=== PATIENT | male | born 1965 | race Caucasian/White ===

== ENCOUNTER 2023-11-25 09:38 | Outpatient (AMB) | payer OTHER, SELFPAY ==
--- NOTE | 2023-11-25 09:44 | MHC.PC.OV ---
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 Required: No Allergies No Known Allergies Allergy (Verified 11/25/23 09:45) Medication List - Last Reconciled 11/25/23 by Shanna Guevara MD acetaminophen (Tylenol) 325 mg PO QID PRN ibuprofen 200 mg PO Q6H PRN Tobacco use date assessed: 11/25/23 Dental Screening Dental Screen Date: 11/25/23 Did you have a dental visit in the last 12 months?: Yes Did you have a dental problem in the last 6 months where you did not have access to dental care?: No Was dental information given to patient?: Patient has dentist HPI HPI Comments History of Present Illness Details This is a 58 year old male with a past medical history of aortic root dilation presenting to reestablish care and for physical exam Aortic root dilation with annual echos. Not significant increase in size per patient though records not yet available. Had colonoscopy at 49 or 50 and was told 10 year return. 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 1. Little interest or pleasure in doing things: not at all 2. Feeling down, depressed, or hopeless: several days 3. Trouble falling or staying asleep, or sleeping too much: several days 4. Feeling tired or having little energy: several days 5. Poor appetite or overeating: not at all 6. Feeling bad about yourself - or that you are a failure or have let yourself or your family down: not at all 7. Trouble concentrating on things, such as reading the newspaper or watching television: not at all 8. Moving or speaking so slowly that other people could have noticed. Or the opposite - being so fidgety or restless that you have been moving around a lot more than usual: not at all 9. Thoughts that you would be better off or of hurting yourself in some way: not at all Total score: 3 Depression Screening Interpretation: Negative (neg) Depression Screening Done: Yes Source: Developed by Drs. Andrés Junior, Citlali Ortiz, Luis Fernando Kenny and colleagues, with an educational jean paul from [employer]. AUDIT C Alcohol Use Questionnaire (AUDIT-C) 1. How often do you have a drink containing alcohol?: Never 3. How often do you have six or more drinks on one occasion?: Never Total Score: 0 Review of Systems Const Details: ROS CONSTITUTIONAL: Denies weight loss, fever and chills. HEENT: Denies changes in vision and hearing. RESPIRATORY: Denies SOB and cough. CV: Denies palpitations and CP GI: Denies abdominal pain, nausea, vomiting and diarrhea. : Denies dysuria and urinary frequency. MSK: Denies new myalgia and joint pain. SKIN: Denies rash and pruritus. NEUROLOGICAL: Denies headache PSYCHIATRIC: Denies recent changes in mood. Physical exam (Primary Care) Vital Signs: Last Vital Signs Temp 98 F 11/25/23 09:49 Pulse 62 11/25/23 09:49 Resp 18 11/25/23 09:49 BP 144/88 H 11/25/23 09:51 Pulse Ox 96 11/25/23 09:49 Oxygen Delivery Method Room Air 11/25/23 09:49 PHYSICAL EXAM: GENERAL: Alert and oriented x 3. NAD EYES: EOMI. Anicteric. HENT: Moist mucous membranes. No scleral icterus. No cervical lymphadenopathy. LUNGS: Clear to auscultation bilaterally. CARDIOVASCULAR: Regular rate and rhythm. No murmur. No JVD. ABDOMEN: Soft, non-tender +bs EXTREMITIES: No edema. Non-tender. SKIN: No rashes or lesions. Warm. NEUROLOGIC: No focal neurological deficits. CN II-XII grossly intact PSYCHIATRIC: Cooperative. Appropriate mood and affect BMI result Body Mass Index 31.9 Tobacco/Smoking Status: Tobacco use Status Tobacco use date assessed 11/25/23 11/25/23 09:53 Patient Tobacco Use Status Former Tobacco user 11/25/23 09:53 e-Cigarette/Vaping Use Never Used 11/25/23 09:53 Depression Screening Interpretation: Negative (neg) Assessment and Plan Assessment & Plan (1) Physical exam: Code(s): Z00.00 - Encounter for general adult medical examination without abnormal findings Plan: 58 year old male presenting for physical exam The patient was evaluated today for annual preventive exam He was counseled about healthy lifestyle habits, including: Smoking cessation Limiting alcohol intake Receiving age-appropriate immunizations at recommended intervals Recommended screening in men includes: Human immunodeficiency virus infection in all men Hypertension in all men Diabetes mellitus in men 40 to 70 years of age who are overweight or obese Dyslipidemia in men 40 to 75 years Prostate cancer in some men 55 to 69 years of age, based on shared decision making Colorectal cancer in average-risk men 50 to 75 years of age Lung cancer in men 55 to 80 years of age who have at least a 45-[id number]-lhyr smoking history and currently smoke or have quit within the past 15 years (2) Aortic root dilatation: Comment: echo ordered Code(s): I77.810 - Thoracic aortic ectasia Orders: Orders Complete Blood Count Auto Diff Today Z12.5 - Encounter for screening for malignant neoplasm of prostate, Z13.0 - Encounter for screening for diseases of the blood and blood-forming organs and certain disorders involving the immune mechanism, Z13.220 - Encounter for screening for lipoid disorders, Z13.228 - Encounter for screening for other metabolic disorders Comprehensive Met. Panel Today Z12.5 - Encounter for screening for malignant neoplasm of prostate, Z13.0 - Encounter for screening for diseases of the blood and blood-forming organs and certain disorders involving the immune mechanism, Z13.220 - Encounter for screening for lipoid disorders, Z13.228 - Encounter for screening for other metabolic disorders Prostate Specific Antigen Today Z12.5 - Encounter for screening for malignant neoplasm of prostate, Z13.0 - Encounter for screening for diseases of the blood and blood-forming organs and certain disorders involving the immune mechanism, Z13.220 - Encounter for screening for lipoid disorders, Z13.228 - Encounter for screening for other metabolic disorders Lipid Panel Today Z12.5 - Encounter for screening for malignant neoplasm of prostate, Z13.0 - Encounter for screening for diseases of the blood and blood-forming organs and certain disorders involving the immune mechanism, Z13.220 - Encounter for screening for lipoid disorders, Z13.228 - Encounter for screening for other metabolic disorders CA echo transthoracic complete Today I77.810 - Thoracic aortic ectasia Coding Level of Care Code Est Pt Prev Care 40-64y(24341) Diagnoses Physical exam Z00.00 Aortic root dilatation I77.810
[2023-11-25 09:49] VITALS: BP 142/80; PULSE 62; RESP 18; TEMP 36.6; O2SAT 96; BMI 31.9
[2023-11-25 09:51] VITALS: BP 144/88
== END 2023-11-25 10:28 | disposition home or self-care (01) ==
PROVIDERS: PCP Internal Medicine; Visit Provider Internal Medicine
DX: Z00.00 Encounter for general adult medical examination without abnormal findings (principal); I77.810 Thoracic aortic ectasia
CPT/HCPCS: 99396

== ENCOUNTER → 2024-04-05 15:02 | Outpatient (REF) | payer OTHER, SELFPAY ==
--- NOTE | 2024-04-05 15:04 | CA_ITS ---
Transthoracic Echocardiogram Patient (Last, First, Middle): Xavi Kelly, Gender: Male Date of : 1965 Age: 58 Procedure Date: 04/05/2024 Procedure Type: Transthoracic Echocardiogram Location: OP Height: 177.8 cm Weight: 102.06 kg BSA: 2.19 m2 Heart Rate: bpm BP: 138 / 90 mmHg Jet Wiper: TO Referring MD: Shanna Guevara MD Rackman: Sherif Mckoy MD Symptoms: I77.810 - Thoracic aortic ectasia Study Quality: Fair ECG Rhythm: Sinus Conclusions: - 1. Normal LV ejection fraction of 60 65% 2. Normal cardiac valvular Dopplers 3. Upper limits of normal ascending aortic size 4. No gross pericardial effusion Findings Left Ventricle Normal left ventricular size, thickness, and systolic function. The visually estimated ejection fraction is between 60-65%. Spectral Doppler is indicative of a normal filling pattern. Right Ventricle Normal right ventricular cavity size and systolic function. Atria Both atria are normal in size. Interatrial shunt cannot be excluded. Aortic Valve The aortic valve structure and function is likely normal. There is no aortic valve stenosis. There is no aortic valve regurgitation. Mitral Valve Likely normal mitral valve structure and function. There is trace mitral valve regurgitation. There is no mitral valve stenosis. Pulmonic Valve The pulmonic valve was not well visualized. Tricuspid Valve Likely normal tricuspid valve structure and function. Tricuspid regurgitation envelope is inadequate for calculation of right ventricular systolic pressure. Normal right atrial pressure. Great Vessels All visible segments of the aorta are normal in size. The pulmonary artery was not well visualized. Venous The inferior vena cava is normal in size and collapses greater than 50% with inspiration. Pericardium/Pleural There is no evidence of pericardial effusion. Prior Study Comparison No prior study available for comparison. Measurements 2D Linear Measurements IVSd: 1.05 0.6-0.9/0.6-1.0 cm LVIDd: 4.34 3.9-5.3/4.2-5.9 cm LVIDd Index: 1.98 2.4-3.2/2.2-3.1 cm/m2 LVIDs: 2.86 2.0-3.6 cm LVPWd: 0.84 0.7-1.1 cm LA Diam: 3.30 2.7-3.8/3.0-4.0 cm LAIDs Index: 1.51 1.5-2.3 cm/m2 LV Mass: 166.70 67-162/88-224 g LV Mass Index: 76.12 43-95/49-115 g/m2 LVOT Diam: 2.30 3.0+(-)1.3 cm 2D Systolic Function EF 4C: 64.50 >55% EF 2C: 64.40 >55% EF BiP: 62.60 >55% Mitral Valve MV Pk E: 0.66 MV PK A: 0.62 MV Decel Time: 231.00 E/A: 1.10 E'Lateral: 9.79 E'Medial: 6.96 E/E' Med: 9.50 E/E' Lat: 6.80 PHT: 68.00 MVA PHT: 3.24 Decel [place]: 2.87 Aortic Valve AoV Pk Ruddy: 1.22 AoV Mn Ruddy: 0.87 AoV VTI: 0.26 AoV Pk Grad: 6.00 Aov Mn Grad: 3.00 CLEMENTE Cont.VTI: 2.74 LVOT LVOT Pk Ruddy: 0.72 LVOT Mn Ruddy: 0.51 LVOT VTI: 0.17 LVOT Pk Grad: 2.00 LVOT Mn Grad: 1.00 LVOT Diam: 2.30 LVOT Area: 4.15 Diastolic Function MV Pk E: 0.66 MV Pk A: 0.62 E/A: 1.10 E'Medial: 6.96 E/E' Med: 9.50 E' Laterial: 9.79 E/E' Lat: 6.80 Right Ventricle TAPSE (mm): 29.50 TVS' Ruddy: 15.80 Tricuspid Valve RA Press: 3.00 Great Vessels Aorta Sinus of Valsalva: 4.12 2.0-3.5 cm Ao Asc: 3.60 2.1-3.4 cm Ao Arch: 3.20 Updated in Other Vendor System with Status of Final Sherif Mckoy MD electronically signed on 04/05/2024 4:16:13 PM with status of Final
== END ==
LOC: HO.CARD 15:02
PROVIDERS: PCP Internal Medicine; Visit Provider Internal Medicine
DX: I77.810 Thoracic aortic ectasia (principal)
CPT/HCPCS: 93306

== ENCOUNTER → 2024-04-05 15:04 | Outpatient (BNV) | payer OTHER, SELFPAY | PROVIDERS: PCP Internal Medicine; Visit Provider Internal Medicine Cardiovascular Disease | DX: I34.0 Nonrheumatic mitral (valve) insufficiency (principal); I77.810 Thoracic aortic ectasia | CPT/HCPCS: 93306 ==

== ENCOUNTER 2024-04-24 08:51 | Outpatient (AMB) | payer OTHER, SELFPAY ==
--- NOTE | 2024-04-24 08:59 | A.OFFPC_ITS ---
Vital Signs 04/24/24 09:00 Height 5 ft 10 in Weight 234 lb BMI 33.6 BP 102/80 Blood Pressure Location Rt brachial Position Sitting Respiration 14 Pulse 77 Pulse Source Pulse Oximeter Temp 98.5 F Temp Source Oral Pulse Oximetry (%) 97 Oxygen Delivery Method Room Air Intake Visit Reasons: ear pain Intake Note: Left ear pain. Pain started in the jaw about two weeks ago. 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 Was quite bad at the start then seemed to migrate into the left ear and the severity has subsided over the past week. Aortic root dilation with annual echos. Not significant increase in size per patient though records not yet available. Had colonoscopy at 49 or 50 and was told 10 year return. Record not yet available ROS CONSTITUTIONAL: Denies weight loss, fever and chills. HEENT: Denies changes in vision and hearing. RESPIRATORY: Denies SOB and cough. CV: Denies palpitations and CP GI: Denies abdominal pain, nausea, vomiting and diarrhea. : Denies dysuria and urinary frequency. MSK: Denies new myalgia and joint pain. SKIN: Denies rash and pruritus. NEUROLOGICAL: Denies headache PSYCHIATRIC: Denies recent changes in mood. PHYSICAL EXAM: GENERAL: Alert and oriented x 3. NAD EYES: EOMI. Anicteric. HENT: Moist mucous membranes. No scleral icterus. No cervical lymphadenopathy. Bilateral ear canals and TM normal LUNGS: Clear to auscultation bilaterally. CARDIOVASCULAR: Regular rate and rhythm. No murmur. No JVD. ABDOMEN: Soft, non-tender +bs EXTREMITIES: No edema. Non-tender. SKIN: No rashes or lesions. Warm. NEUROLOGIC: No focal neurological deficits. CN II-XII grossly intact PSYCHIATRIC: Cooperative. 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 1. Little interest or pleasure in doing things: not at all 2. Feeling down, depressed, or hopeless: not at all 3. Trouble falling or staying asleep, or sleeping too much: not at all 4. Feeling tired or having little energy: not at all 5. Poor appetite or overeating: not at all 6. Feeling bad about yourself - or that you are a failure or have let yourself or your family down: not at all 7. Trouble concentrating on things, such as reading the newspaper or watching television: not at all 8. Moving or speaking so slowly that other people could have noticed. Or the opposite - being so fidgety or restless that you have been moving around a lot more than usual: not at all 9. Thoughts that you would be better off or of hurting yourself in some way: not at all Total score: 0 Depression Screening Interpretation: Negative Depression Screening Done: Yes 28923 - PHQ-9 Billing: Yes Source: Developed by Drs. Andrsé Junior, Citlali Ortiz, Luis Fernando Kenny and colleagues, with an educational jean paul from [employer]. Thrive Questionnaire Date Thrive assessed: 04/17/24 I am a: Patient What is your living situation today?: I have a steady place to live Within the past 12 months, did the food you bought not last and you didn't have the money to get more?: Never true Within the past 12 months, did you worry whether your food would run out before you got money to buy more?: Never true Do you have trouble paying for medicines?: No Do you have trouble getting transportation to medical appointments?: No Do you have trouble paying your heating and electricity bill?: No Do you have trouble taking care of your child, family member or friend?: No Do you have trouble with day-to-day activities such as bathing, preparing meals, shopping, managing finances, etc.?: No Are you currently unemployed and looking for a job?: No Are you interested in more education?: No Please select the resources that you would like help with: None Currently or been in a relationship where the following occur: No concerns reported THRIVE Score: 0 AUDIT C Alcohol Use Questionnaire (AUDIT-C) 1. How often do you have a drink containing alcohol?: Never Total Score: 0 GREGORIA-7 AMB Questionnaire GREGORIA-7 Feeling nervous, anxious, or on edge: 0 = Not at all Not being able to stop or control worryin = Not at all Worrying too much about different things: 0 = Not at all Trouble relaxin = Not at all Being so restless that it is hard to sit still: 0 = Not at all Becoming easily annoyed or irritable: 0 = Not at all Feeling afraid as if something awful might happen: 0 = Not at all Total GREGORIA-7 score (0-4 normal; 5-9 mild; 10-14 moderate; 15-21 severe): 0 Source: Developed by Drs. Andrés Junior, Citlali Ortiz, Luis Fernando Kenny and colleagues, with an educational jean paul from [employer]. Physical exam (Primary Care) Vital Signs: Last Vital Signs Temp 98.5 F 04/24/24 09:00 Pulse 77 04/24/24 09:00 Resp 14 04/24/24 09:00 BP 102/80 04/24/24 09:00 Pulse Ox 97 04/24/24 09:00 Oxygen Delivery Method Room Air 04/24/24 09:00 BMI result Body Mass Index 33.6 Tobacco/Smoking Status: Tobacco use Status Tobacco use date assessed 11/25/23 04/24/24 09:03 Patient Tobacco Use Status Former Tobacco user 04/24/24 09:03 e-Cigarette/Vaping Use Never Used 04/24/24 09:03 PHQ-9: PHQ-9 Score PHQ-9: Total score 0 04/24/24 09:08 Depression Screening Interpretation: Negative Thrive Assessment: Date of Thrive Assessment Date Thrive assessed 04/17/24 04/24/24 09:03 Currently or been in a relationship where the following occur: No concerns reported Coding Level of Care Code Est Pt Level 4 (79287) Diagnoses 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 No evidence of ear infection Medications: New prednisone 40 mg (2 x 20 mg) PO DAILY 10 tabs 0RF
[2024-04-24 09:00] VITALS: BP 102/80; PULSE 77; RESP 14; TEMP 36.9; O2SAT 97; BMI 33.6
== END 2024-04-24 09:23 | disposition home or self-care (01) ==
PROVIDERS: PCP Internal Medicine; Visit Provider Internal Medicine
DX: M26.642 Arthritis of left temporomandibular joint (principal)

== ENCOUNTER → 2024-04-24 08:51 | Outpatient (BNVA) | payer OTHER, SELFPAY | PROVIDERS: PCP Internal Medicine; Visit Provider Internal Medicine ==

== ENCOUNTER 2024-11-27 08:22 | Outpatient (AMB) | payer OTHER, SELFPAY ==
--- NOTE | 2024-11-27 08:27 | A.OFFPC_ITS ---
Vital Signs 11/27/24 08:35 Height 5 ft 10 in Weight 231 lb BMI 33.1 BP 138/88 Blood Pressure Location Lt brachial Position Sitting Pulse 65 Pulse Source Pulse Oximeter Temp 97.4 F Temp Source Temporal Artery Scan Pulse Oximetry (%) 97 Oxygen Delivery Method Room Air Intake Visit Reasons: annual exam Intake Note: Xavi presents in the office today for his annual physical exam. Allergies Seasonal Allergies Allergy (Verified 11/27/24 08:29) Congestion Tobacco use date assessed: 11/27/24 Dental Screening Dental Screen Date: 11/27/24 Did you have a dental visit in the last 12 months?: No Did you have a dental problem in the last 6 months where you did not have access to dental care?: No Was dental information given to patient?: Yes HPI HPI Comments History of Present Illness Details This is a 59 year old male with a past medical history of aortic root dilation, low back pain presenting for physical exam Aortic root dilation with annual echos-last Reports pain and numbness in the right great toe, pain in the right lower leg with walking front and back. The toe gets cold. Similar symptoms in left but less severe. Has history of low back pain. Has been fairly stable. Had colonoscopy 2013- year repeat ROS see HPI PHYSICAL EXAM: GENERAL: Alert and oriented x 3. NAD EYES: EOMI. Anicteric. HENT: Moist mucous membranes. No scleral icterus. No cervical lymphadenopathy. Bilateral ear canals and TM normal LUNGS: Clear to auscultation bilaterally. CARDIOVASCULAR: Regular rate and rhythm. ABDOMEN: Soft, non-tender +bs EXTREMITIES: Mild bilateral pitting edema, some rle hair loss. 1+R-DP pulse 2+left SKIN: scattered nevi, aks NEUROLOGIC: No focal neurological deficits. CN II-XII grossly intact PSYCHIATRIC: Cooperative. 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 1. Little interest or pleasure in doing things: not at all 2. Feeling down, depressed, or hopeless: not at all 3. Trouble falling or staying asleep, or sleeping too much: several days 4. Feeling tired or having little energy: several days 5. Poor appetite or overeating: not at all 6. Feeling bad about yourself - or that you are a failure or have let yourself or your family down: not at all 7. Trouble concentrating on things, such as reading the newspaper or watching television: not at all 8. Moving or speaking so slowly that other people could have noticed. Or the opposite - being so fidgety or restless that you have been moving around a lot more than usual: not at all 9. Thoughts that you would be better off or of hurting yourself in some way: not at all Total score: 2 Depression Screening Interpretation: Negative Depression Screening Done: Yes 90930 - PHQ-9 Billing: Patient declined-do not bill Source: Developed by Drs. Andrés Junior, Citlali Ortiz, Luis Fernando Kenny and colleagues, with an educational jean paul from [employer]. Thrive Questionnaire Date Thrive assessed: 11/27/24 I am a: Patient What is your living situation today?: I have a steady place to live Within the past 12 months, did the food you bought not last and you didn't have the money to get more?: Never true Within the past 12 months, did you worry whether your food would run out before you got money to buy more?: Never true Do you have trouble paying for medicines?: No Do you have trouble getting transportation to medical appointments?: No Do you have trouble paying your heating and electricity bill?: No Do you have trouble taking care of your child, family member or friend?: No Do you have trouble with day-to-day activities such as bathing, preparing meals, shopping, managing finances, etc.?: No Are you currently unemployed and looking for a job?: No Are you interested in more education?: No Please select the resources that you would like help with: None Currently or been in a relationship where the following occur: No concerns reported THRIVE Score: 0 AUDIT C Alcohol Use Questionnaire (AUDIT-C) 1. How often do you have a drink containing alcohol?: Never 3. How often do you have six or more drinks on one occasion?: Never Total Score: 0 GREGORIA-7 AMB Questionnaire GREGORIA-7 Date GREGORIA - 7 assessed: 11/27/24 Feeling nervous, anxious, or on edge: 0 = Not at all Not being able to stop or control worryin = Not at all Worrying too much about different things: 0 = Not at all Trouble relaxin = Not at all Being so restless that it is hard to sit still: 0 = Not at all Becoming easily annoyed or irritable: 0 = Not at all Feeling afraid as if something awful might happen: 0 = Not at all Total GREGORIA-7 score (0-4 normal; 5-9 mild; 10-14 moderate; 15-21 severe): 0 Source: Developed by Drs. Andrés Junior, Citlali Ortiz, Luis Fernando Kenny and colleagues, with an educational jean paul from [employer]. GREGORIA-7 Assessment Billing GREGORIA-7 Assessment Tool: GREGORIA-7 Assessment 88726 Physical exam (Primary Care) Vital Signs: Last Vital Signs Temp 97.4 F 11/27/24 08:35 Pulse 65 11/27/24 08:35 BP 138/88 11/27/24 08:35 Pulse Ox 97 11/27/24 08:35 Oxygen Delivery Method Room Air 11/27/24 08:35 BMI result Body Mass Index 33.1 Tobacco/Smoking Status: Tobacco use Status Tobacco use date assessed 11/27/24 11/27/24 08:33 Patient Tobacco Use Status Former Tobacco user 11/27/24 08:31 e-Cigarette/Vaping Use Never Used 11/27/24 08:31 PHQ-9: PHQ-9 Score PHQ-9: Total score 2 11/27/24 09:06 Depression Screening Interpretation: Negative Thrive Assessment: Date of Thrive Assessment Date Thrive assessed 11/27/24 11/27/24 08:33 Currently or been in a relationship where the following occur: No concerns reported Coding Level of Care Code Est Pt Prev Care 40-64y(80210) Diagnoses Physical exam Z00.00 Numbness of toes R20.0 Right leg pain M79.604 Aortic root dilatation I77.810 Additional Codes GREGORIA-7 Assessment Billing - GREGORIA-7 Assessment Tool: GREGORIA-7 Assessment 58008 ([id number]) Assessment & Plan Assessment & Plan (1) Physical exam: Code(s): Z00.00 - Encounter for general adult medical examination without abnormal findings Category: Medical (2) Numbness of toes: Code(s): R20.0 - Anesthesia of skin Category: Medical (3) Right leg pain: Code(s): M79.604 - Pain in right leg Category: Medical (4) Aortic root dilatation: Comment: echo ordered Code(s): I77.810 - Thoracic aortic ectasia Category: Medical Plan 59 year old for CPE Interval history reviewed Leg pain-venous us ordered. referral to vascular Referral to dermatology Annual echo ordered Labs ordered Orders: Orders Comprehensive Met. Panel Today Z00.00 - Encounter for general adult medical examination without abnormal findings, Z13.228 - Encounter for screening for other metabolic disorders Lipid Panel Today Z13.220 - Encounter for screening for lipoid disorders CA echo transthoracic complete 5 Months I77.810 - Thoracic aortic ectasia Complete Blood Count Auto Diff Today Z13.0 - Encounter for screening for diseases of the blood and blood-forming organs and certain disorders involving the immune mechanism Hemoglobin A1c Today M79.604 - Pain in right leg, R20.0 - Anesthesia of skin Prostate Specific Antigen Today R20.0 - Anesthesia of skin, Z12.5 - Encounter for screening for malignant neoplasm of prostate Vitamin B12 and Folate Today R20.0 - Anesthesia of skin US venous duplex LE BI Today M79.604 - Pain in right leg, M79.605 - Pain in left leg Referrals Dermatology Referral D22.9 - Melanocytic nevi, unspecified Gastroenterology Referral M79.604 - Pain in right leg, R20.0 - Anesthesia of skin, Z00.00 - Encounter for general adult medical examination without abnormal findings, Z12.11 - Encounter for screening for malignant neoplasm of colon Vascular Surgery Referral M79.604 - Pain in right leg, M79.605 - Pain in left leg
[2024-11-27 08:35] VITALS: BP 138/88; PULSE 65; TEMP 36.3; O2SAT 97; BMI 33.1
== END 2024-11-27 09:08 | disposition home or self-care (01) ==
LOC: HO.HMCFM 08:23
PROVIDERS: PCP Internal Medicine; Visit Provider Internal Medicine
DX: Z00.00 Encounter for general adult medical examination without abnormal findings (principal); R20.0 Anesthesia of skin; M79.604 Pain in right leg; I77.810 Thoracic aortic ectasia

== ENCOUNTER → 2024-11-27 08:22 | Outpatient (BNVA) | payer OTHER, SELFPAY | PROVIDERS: PCP Internal Medicine; Visit Provider Internal Medicine | DX: Z00.00 Encounter for general adult medical examination without abnormal findings (principal); R20.0 Anesthesia of skin; M79.604 Pain in right leg; I77.810 Thoracic aortic ectasia; M79.605 Pain in left leg; D22.9 Melanocytic nevi, unspecified | CPT/HCPCS: 96127 ==

== ENCOUNTER 2024-11-27 09:15 | Outpatient (REF) | payer OTHER, SELFPAY ==
--- OUTSIDE RECORDS SUMMARY | 2024-11-27 10:07 | XMS_ITS | Encounter Summary ---
Author Organization [facility] Address [address] [place] [address] Care Team Providers Care Fast Food Crew Lead Name Role Phone Yevgeniy Phelan MD Primary Care Provider Unavail able Shanna Briggs MD Primary Care Provider Unavailraina flores Encounter Details Date Type Department Care Team Description 10/18/2013 Controlled Substance Contract with Plan Medical Records [address] [place] [id number] Abstract, Provider Social History Tobacco Use Types Packs/Day Years Used Date Smoking Tobacco: Former Cigarettes 08 20 Smokeless Tobacco: Never Alcohol Use Standard Drinks/Week Comments No 0 (1 standard drink = 0.6 oz pur e alcohol) Sex Assigned at Date Recorded Not on file documented as of this encounter Plan of Treatment Not on file documented as of this encounter Visit Diagnoses Not on filedocumented in this encounter Care Teams Fast Food Crew Lead Relationship Specialty Start Date End Date Yevgeniy Phelan MD PCP - General Internal Medicine 08/15/13 05/25/15 Shanna Briggs MD PCP - General Internal Medicine 05/26/15 documented as of this encounter
--- OUTSIDE RECORDS SUMMARY | 2024-11-27 10:07 | XMS_ITS | Clinical Summary ---
Author Organization [facility] Address [address] [place] [address] Care Team Providers Care Outside Rigger Name Role Phone Shanna Briggs MD Primary Care Provider Unavaila ble Allergies No known active allergies Medications No known medications Active Problems Problem Noted Date Obstructive sleep apnea mild AHI 6 07/23 Overview: [facility] Home Sleep Apnea Test: Date 07/14/2020; Wt 230#; BMI 33; ELZA (AHI) 6, AI 1; HI 5; Unclassified apneas 0; Obstructive apneas 3; Central apneas 0; Mixed apneas 0; hypopneas 19; average oxygen saturation 95% (lowest 86% without saturations <88% for 5% or more of study) - Obstructive Sleep Apnea - mild; mostly hypopneas; without sleep related hypoventilation by 2019 home sleep apnea test. Overweight 10/29/2014 Rosacea 02/18/2014 Carotid atherosclerosis Anxiety Snoring Immunizations Name Administration Dates Next Due Tdap 10/18/2013 Family History Relation Name Status Comments Daughter Alive step daughter, healthy Father Alive Chol, DM Maternal Grandfather [place] Maternal Grandmother (Age 80s) O ld age? Mother Alive Chol Paternal Grandfather [place] Paternal Grandmother (Age 80s) C VA Sister 1 Alive times 2, twins - healhty Sister 2 (Age 54) brain canc er Son Alive healthy Social History Tobacco Use Types Packs/Day Years Used Date Smoking Tobacco: Former Cigarettes 1 27 0 07/25/1984 - 01/29/2012 Smokeless Tobacco: Never Alcohol Use Standard Drinks/Week Comments No 0 (1 standard drink = 0.6 oz pure alcohol) none since 2011; prior 5- 8 most nights Sex Assigned at Date Recorded Not on file Last Filed Vital Signs Vital Sign Reading Time Taken Comments Blood Pressure 126/60 08/01/2020 10:46 AM EST Pulse 69 08/01/2020 10:46 AM EST Temperature 36.7 ??C (98.1 ??F) 08/01/2019 9:02 AM ES T Respiratory Rate 12 08/01/2020 10:46 AM EST Oxygen Saturation 97% 08/01/2020 10:46 AM EST Inhaled Oxygen Concentration - - Weight 103 kg (227 lb) 08/01/2020 10:46 AM EST Height 177.8 cm (5' 10 ) 08/01/2020 10:46 AM EST Body Mass Index 32.57 08/01/2020 10:46 AM EST Plan of Treatment Health Maintenance Due Date Last Done Comments Covid-19 Vaccine (#1) 1965 SHINGLES VACCINE (1 of 2) 2013 BASELINE HEALTH EXAM 40-64 08/01/202108/01, 08/01/2019, 10/29/2014 DTAP/TDAP/TD (2 - Td or Tdap) 10/19/2023 10/18/2013 BMI CHECK/ADVISE 07/25/2024 08/01/2020, 02/2020, 08/01/2019 (Completed), Additional history exists CHOLESTEROL SCREENING 08/01/2024 08/01/2019 , 08/21/2015, 10/19/2014, Additional history exists INFLUENZA (Season Ended) 2025 08/01/2019 (Refu sed) COLON CANCER SCREENING 07/30/2025 07/30/2015 PNEUMOCOCCAL VACCINE FOR HIG H RISK PATIENTS (#1) 2028 HEPATITIS C SCREENING Completed 01/24/2015 Care Teams Outside Rigger Relationship Specialty Start Date End Date Shanna Briggs MD PCP - General Internal Medicine 05/26/15
--- OUTSIDE RECORDS SUMMARY | 2024-11-27 10:07 | XMS_ITS | Encounter Summary ---
Author Organization [employer] [facility] Address [address] [place] [address] Care Team Providers Care Medical Research Tech Name Role Phone Shanna Briggs MD Primary Care Provider Alaina flores Encounter Details Date Type Department Care Team Description 11/10/2017 Telephone Medicine/Pediatrics - [address] [phone] Mauro Alberto MD Social History Tobacco Use Types Packs/Day Years Used Date Smoking Tobacco: Former Cigarettes 1 27 0 07/25/1984 - 01/29/2012 Smokeless Tobacco: Never Alcohol Use Standard Drinks/Week Comments No 0 (1 standard drink = 0.6 oz pure alcohol) none since 2011; prior 5- 8 most nights Sex Assigned at Date Recorded Not on file documented as of this encounter Miscellaneous Notes * Telephone Encounter - Mauro Alberto MD - 11/10/2017 9:07 AM EDT Left message with home and mobile number re: carotid artery doppler u/s, also release info on mychart, await call back documented in this encounter Plan of Treatment Not on file documented as of this encounter Visit Diagnoses Not on filedocumented in this encounter Care Teams Medical Research Tech Relationship Specialty Start Date End Date Shanna Briggs MD PCP - General Internal Medicine 05/26/15 documented as of this encounter
--- OUTSIDE RECORDS SUMMARY | 2024-11-27 10:07 | XMS_ITS | Encounter Summary ---
Author Organization [facility] Address [address] [place] [address] Care Team Providers Care Aquatics Lifeguard Name Role Phone Shnana Briggs MD Primary Care Provider Ald[place] ble Reason for Visit * Reason Onset Date Comments Pie Bottomer Feedback 08/19/2015 Dr. Clau hardy Encounter Details Date Type Department Care Team Description 08/19/2015 Telephone Medicine/Pediatrics - [address] [phone] Shanna Briggs MD Pie Bottomer Feedback (Dr. Clau Cabello) Social History Tobacco Use Types Packs/Day Years [...] encounter Miscellaneous Notes * Telephone Encounter - Ramona Rosado - 08/19/2015 1:18 PM EST Subscriber: XAVI MCGILL Submitter Submitter Type: Provider : 1965 Referral (#[id number]) Specialty Care Review Type: Initial Certification Status : Certified in total Service Type : Medical Care Place Of Service : Office Visits : 6 Service Date : 08/19/2015-08/19/2016 Service Providers Provider Name ID Provider Type CLAU CABELLO NPI : [id number] Service Provider * Telephone Encounter - Sarah Cano - 08/19/2015 12:49 PM EST Did you verify this is patients current insurance? YES Payor: [facility] / Plan: POS $20 [place] / Product Type: POS [id number] Effective 04/24/09: [employer] will not retro referral requests over 90 days. If request is for this please instruct patient to call the 800# on their insurance card to appeal. Do not submit a request. Referrals cannot be processed if the insurance is not accurate. If the insurance listed above in red is NO BILLING INFORMATION FOUND FOR THIS ENCOUTNER The patients correct insurance must be obtained and registered in [employer] or their referral can not be processed. Who is calling to request this referral? Patient If the caller is not the patient, what is their name? N/A FIRST and LAST NAME of SPECIALIST PATIENT is seeing: Dr. Clau Cabello What specialty is this? urology DIAGNOSIS Patient is being seen for (Not a body part or a procedure): follow up on renal cyst Have you seen this SPECIALIST for this PROBLEM/DX before?YES If YES, when:June 2014 Have you checked REVIEW or the APPT DESK to see if this referral has already been done or has visits left? YES Who referred the patient to this specialty? Is this visit:Follow Up Address of Specialist:[address] [place] [address]. [address] Phone # of Specialist:[phone] Fax #: (if applicable):[phone] Does patient have an appointment scheduled?: YES Date of appointment- (including a retro-request): 08/22/15 and 09/03/15 Is this appointment related to: Not MVA, WC or Surgery related documented in this encounter Plan of Treatment Not on file documented as of this encounter Visit Diagnoses Not on filedocumented in this encounter Care Teams Aquatics Lifeguard Relationship Specialty Start Date End Date Shanna Briggs MD PCP - General Internal Medicine 05/26/15 documented as of this encounter
--- OUTSIDE RECORDS SUMMARY | 2024-11-27 10:07 | XMS_ITS | Encounter Summary ---
Author Organization [facility] Address [address] [place] [address] Care Team Providers Care Outsole Compressor Name Role Phone Shanna Briggs MD Primary Care Provider Alaina flores Encounter Details Date Type Department Care Team Description 01/18/2017 Release of Information Medical Records [address] [place] [id number] Abstract, Provider Social History Tobacco Use Types [...] on filedocumented in this encounter Care Teams Outsole Compressor Relationship Specialty Start Date End Date Shanna Briggs MD PCP - General Internal Medicine 05/26/15 documented as of this encounter
[2024-11-27 11:22] LABS: MANUAL DIFF FLAG NO
[2024-11-27 11:34] LABS: Basophils Absolute Auto 0.1 X10*3/uL (0.0-0.2); Basophils Percent Auto 0.9 % (0-2); Eosinophils Absolute Auto 0.2 X10*3/uL (0.0-0.4); Eosinophils Percent Auto 2.2 % (0-4); Hematocrit 50.6 % (42.0-52.0); Hemoglobin 17.3 g/dl (14.0-18.0); Imm Gran Abs Auto 0.03 X10*3/uL (0.00-0.03); Imm Gran Pct Auto 0.4 % (0.0-0.4); Lymphocytes Absolute Auto 1.9 X10*3/uL (1.2-4.9); Lymphocytes Percent Auto 27.7 % (20-40); Mean Corpuscular HGB Conc 34.2 g/dl (31.0-36.0); Mean Corpuscular Hemoglobin 30.8 pg (27.0-33.0); Mean Corpuscular Volume 90.2 fL (80.0-98.0); Mean Platelet Volume 9.8 fL (9.4-12.4); Monocytes Absolute Auto 0.5 X10*3/uL (0.1-1.2); Monocytes Percent Auto 7.5 % (2-11); Neutrophils Absolute Auto 4.2 x10*3/uL (2.0-8.3); Neutrophils Percent Auto 61.3 % (45-73); Platelet Count 201 X10*3/uL (160-400); Red Blood Count 5.61 X10*6/uL (4.60-5.80); Red Cell Distribution Width 12.5 % (11.0-16.0); White Blood Count 6.8 X10*3/uL (4.8-10.8)
[2024-11-27 11:52] LABS: Estimated Average Glucose 114 mg/dL; Hemoglobin A1C 166.3149 umol/L; Hemoglobin A1c % 5.6 % (<6.0); Total Hemoglobin (HGBA1C) 4444.9206 umol/L
[2024-11-27 12:28] LABS: Folate 7.7 ng/mL (> or = 4.0); Prostate Specific Antigen 0.45 ng/mL (<0.05-4.0); Vitamin B12 334 pg/mL (200-900)
[2024-11-27 14:44] LABS: Anion Gap 11 (12-20)
[2024-11-27 14:52] LABS: Alanine Aminotransferase 25 U/L (0-40); Albumin Level 3.8 g/dL (3.5-5.0); Aspartate Amino Transferase 41 U/L (5-37); Blood Urea Nitrogen 13 mg/dL (9-16); Calcium 8.5 mg/dL (8.4-10.2); Carbon Dioxide 24 mmol/L (22-29); Chloride 109 mmol/L (96-108); Cholesterol 232 mg/dL (<200); Estimated Glomerular Filt Rate > 60; Glucose Random 105 mg/dL (60-115); HDL Cholesterol 40 mg/dL (>40); Potassium 4.1 mmol/L (3.3-5.1); Sodium 140 mmol/L (135-145); Triglycerides 535 mg/dL (<150)
[2024-11-27 17:59] LABS: Alkaline Phosphatase 64 U/L (39-117); Bilirubin Total 0.4 mg/dL (0.0-1.0)
== END 2024-11-27 09:16 | disposition home or self-care (01) ==
LOC: HO.WFDLDS 09:15
PROVIDERS: Visit Provider Internal Medicine
DX: Z00.00 Encounter for general adult medical examination without abnormal findings (principal); Z13.0 Encounter for screening for diseases of the blood and blood-forming organs and certain disorders involving the immune mechanism; Z13.228 Encounter for screening for other metabolic disorders; Z13.220 Encounter for screening for lipoid disorders; M79.604 Pain in right leg; R20.0 Anesthesia of skin; Z12.5 Encounter for screening for malignant neoplasm of prostate; Z13.6 Encounter for screening for cardiovascular disorders; Z13.1 Encounter for screening for diabetes mellitus
CPT/HCPCS: 36415; 80053; 80061; 82607; 82746; 83036; 84153; 85025

== ENCOUNTER 2024-12-19 08:26 | Outpatient (REF) | payer OTHER, SELFPAY ==
--- NOTE | ~2024-12-19 | US_ITS ---
EXAMINATION: US TRIPLEX LOWER EXTREMITY, BILATERAL CLINICAL INFORMATION: Bilateral leg pain. COMPARISON: None available. TECHNIQUE: Color-flow triplex imaging with spectral analysis and compression Doppler were performed on the bilateral lower extremities. FINDINGS: Respiratory variation, normal compression and augmented flow are noted throughout the bilateral lower extremities. The visualized common femoral vein, superficial femoral vein, profunda femoral vein, popliteal vein and midcalf peroneal and posterior tibial venous segments show no evidence of deep venous thrombosis bilaterally. There is no Lynne's cyst. US/US venous duplex LE BI IMPRESSION: No evidence of deep venous thrombosis involving the bilateral lower extremities. Electronically signed by: Sudhir Zambrano MD 12/19/2024 09:16 AM EDT
== END 2024-12-19 08:27 | disposition home or self-care (01) ==
LOC: HO.US 08:26
PROVIDERS: PCP Internal Medicine; Visit Provider Internal Medicine
DX: M79.604 Pain in right leg (principal); M79.605 Pain in left leg
CPT/HCPCS: 93970

== ENCOUNTER → 2024-12-19 08:28 | Outpatient (BNV) | payer OTHER, SELFPAY | PROVIDERS: PCP Internal Medicine; Visit Provider Radiology Diagnostic Radiology | DX: M79.606 Pain in leg, unspecified (principal) | CPT/HCPCS: 93970 ==

== ENCOUNTER 2024-12-31 08:25 | Outpatient (REF) | payer OTHER, SELFPAY ==
--- OUTSIDE RECORDS SUMMARY | 2024-12-31 08:32 | XMS_ITS | Clinical Summary ---
Author Organization [facility] Address [address] [place] [address] Care Team Providers Care Human Resources Administrator Name Role Phone Shanna Briggs MD Primary Care Provider Unavaila ble Allergies No known active allergies Medications No known medications Active Problems Problem Noted Date Obstructive sleep apnea mild AHI 6 07/23 Overview: [facility] Home Sleep Apnea Test: Date 07/14/2020; [...] HEPATITIS C SCREENING Completed 01/24/2015 Care Teams Human Resources Administrator Relationship Specialty Start Date End Date Shanna Briggs MD PCP - General Internal Medicine 05/26/15
[2024-12-31 11:44] LABS: Cholesterol 188 mg/dL (<200); HDL Cholesterol 36 mg/dL (>40); LDL Cholesterol Calculated 127 mg/dL (<100); Triglycerides 127 mg/dL (<150)
[2024-12-31 11:55] LABS: Reflex LDLD? No
== END 2024-12-31 08:26 | disposition home or self-care (01) ==
LOC: HO.WFDLDS 08:25
PROVIDERS: Visit Provider Internal Medicine
DX: E78.5 Hyperlipidemia, unspecified (principal)
CPT/HCPCS: 36415; 80061

== ENCOUNTER 2025-01-01 08:44 | Outpatient (AMB) | payer OTHER, SELFPAY ==
[2025-01-01 09:02] VITALS: BMI 33.1
--- NOTE | 2025-01-01 09:02 | MHC.OFFVIS ---
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 Also state that the right great toe goes numb and cold. 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 Complaints include pain/discomfort, swelling of lower extremities, cramping, fatigue, and heaviness of the lower extremities. It has been affecting their daily activities including working, standing, physical activity, and hiking. It is noted in both legs. He states he first noticed this over a year ago but it has been getting progressively worse. He states that it is worse after walking/hiking with achy/heavy feelings around his lower calves/ankles. He states he occasionally gets some numbness in his big toe, which goes away quickly. He states the discomfort goes away usually after stopping the activity but the swelling remains. He does stand on his feet for work, appx 5h/day, with intermittent breaks where he can sit. He is not a diabetic. He is a former smoker, quitting over 13y ago. He has no hx of blood clots or family hx of clotting disorders. His PCP ordered a venous duplex to r/o DVT on 12/19, which was negative for a DVT on the RLE. Patient denies any previous venous surgery or injections. Patient denies any history of DVT/ PE. Patient denies any history of phlebitis. Trial of compression includes - elevation with some relief They now present for vascular evaluation regarding their varicose veins. 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 Current occupational exposures/hazards: Yes Cognitive needs: No Hearing needs: No Vision needs: Yes (reading glasses) Review of Systems Const Reports as per HPI and Denies weakness ENT Reports Normal hearing present and Denies dizziness Card Reports as per HPI, Denies chest pain, Denies chest pain at rest, Denies chest pain with activity, Denies dyspnea and Denies dyspnea on exertion Resp Reports as per HPI, Denies cough, Denies dyspnea and Denies dyspnea on exertion GI Reports as per HPI, Denies abdominal pain, Denies nausea and Denies vomiting Musc Denies numbness Skin/Breast Reports as per HPI, Denies erythema and Denies wounds Neuro Reports Normal hearing present, Denies dizziness, Denies numbness, Denies Sensory deficit (Neuro) and Denies weakness Psych Reports no additional complaints Endo Reports no additional complaints Physical Exam Vital Signs: BMI result Body Mass Index 33.1 Const General: healthy appearing and no acute distress Orientation/consciousness: patient oriented x3 HEENT Head: Yes normal to inspection Ears: hearing grossly normal bilaterally Mouth: Normal oral and palatal mucosa present Resp Effort & Inspection: normal respiratory effort and able to speak in complete sentences Auscultation: clear to auscultation bilaterally Cardio Jugular venous distension: no JVD Rate: regular rate Rhythm: regular rhythm Heart sounds: S1 normal heart sound present and S2 normal heart sound present Bruits: no abdominal aortic bruits, no carotid bruits, no femoral bruits and no renal bruits Peripheral pulses: Peripheral pulses 2+ throughout GI Inspection: Yes normal to inspection Palpation (GI): No Abdominal aortic bruit present Skin General skin exam: no rashes or lesions noted Wounds: no wounds Hair: normal Neuro General: patient oriented x3 Cranial nerves: Yes Normal hearing present Cognition (Neuro): normal cognition Gait exam (Neuro): Normal gait present Motor exam (neuro): 5/5 motor strength present throughout Sensory Exam: No Sensory deficit (Neuro) Extrem Other: Right lower extremity: +1 pitting edema noted. Palpable DP and PT pulse. No discoloration noted. Cap refill <3 seconds. No varicosities or tortuosities noted. Left lower extremity: Trace edema noted. Palpable DP and PT pulse. No discoloration noted. Cap refill <3 seconds. No varicosities or tortousities noted. CEAP: C - 3 E - primary A - superficial P - reflux General: Yes normal to inspection, Yes full ROM, Yes capillary refill normal and Yes normal gait Assessment & Plan Assessment & Plan (1) Varicose veins of both lower extremities with inflammation: Code(s): I83.11 - Varicose veins of right lower extremity with inflammation; I83.12 - Varicose veins of left lower extremity with inflammation Category: Medical Plan: Xavi is presenting today on a referral from his PCP for concerns of worsening swelling and discomfort of his bilateral lower extremities, R slightly worse than left. In short, the patient has evidence of venous insufficiency. I have discussed the pathophysiology with the patient. In addition I have provided informational material regarding venous disease to the patient. We have discussed conservative measures including compression, elevation, and exercise. We were able to provide him with some compression socks today; I discussed the importance to wear them while at work and walking or hiking. I have taken the liberty of ordering venous insufficiency testing with the patient. They will follow up with me after testing. The patient had an opportunity to ask questions regarding the treatment plan. All questions were answered. Imaging studies, laboratory studies and physical exam results were discussed and reviewed in detail. No major barriers to understanding were identified. The patient expressed understanding and agreement with the above treatment plan. The patient is aware they should contact our office by phone for worsening of the current condition or the appearance of new symptoms. Thank you for allowing me to participate in the vascular care of this patient. If you have any questions or concerns regarding the treatment for the above condition please do not hesitate to contact me. The office telephone contact is [phone]. This note is constructed using voice recognition software. While every effort has been made to ensure accuracy, home maker errors may have been included. Thank you for allowing me to participate in the care of your patient. Yours sincerely, HARLEY Abraham Orders: Orders US venous duplex LE BI 1 Week I83.11 - Varicose veins of right lower extremity with inflammation, I83.12 - Varicose veins of left lower extremity with inflammation Coding Level of Care Code New Pt Level 4 (88922) Diagnoses Varicose veins of both lower extremities with inflammation I83.11; I83.12
== END 2025-01-01 09:28 | disposition home or self-care (01) ==
LOC: HO.HVS 08:45
PROVIDERS: PCP Internal Medicine; Visit Provider Physician Assistant Surgical
DX: I83.11 Varicose veins of right lower extremity with inflammation (principal); I83.12 Varicose veins of left lower extremity with inflammation
CPT/HCPCS: 99204

== ENCOUNTER 2025-02-06 08:21 | Outpatient (REF) | payer OTHER, SELFPAY ==
--- NOTE | ~2025-02-06 | US_ITS ---
EXAMINATION: US LOWER EXTREMITY VENOUS (REFLUX EXAM), BILATERAL CLINICAL INFORMATION: Varices. COMPARISON: None. TECHNIQUE: Color flow triplex imaging and compression Doppler was performed to evaluate both the deep and the superficial systems bilaterally. To evaluate the superficial system, the examination was performed in the upright position. Color-flow Doppler ultrasound and compression ultrasound were utilized. In addition, maneuvers were utilized to demonstrate reflux. FINDINGS: 1. DEEP VENOUS ULTRASOUND OF THE RIGHT LOWER EXTREMITY: Common Femoral Vein: Compressible, normal respiratory variation and augmented flow. Femoral Vein: Compressible, normal color flow and augmentation. Popliteal Vein: Compressible, normal augmentation. Deep Reflux: There is no evidence of reflux in the deep system in either the common femoral vein, superficial femoral or the popliteal vein. There is no evidence of a Lynne's cyst. 2. SUPERFICIAL ULTRASOUND WITH DOPPLER OF RIGHT LOWER EXTREMITY: GREAT SAPHENOUS VEIN: Saphenofemoral Junction: 0.6 cm; Reflux: 0 ms Proximal Thigh: 0.4 cm; Reflux: 0 ms Mid Thigh: 0.2 cm; Reflux: 0 ms Distal Thigh: 0.2 cm; Reflux: 0 ms At Knee: 0.3 cm; Reflux: 0 ms Proximal Calf: 0.2 cm; Reflux: 0 ms Mid Calf: 0.3 cm; Reflux: 0 ms Distal Calf: 0.3 cm; Reflux: 0 ms DUPLICATED MEDIAL GREAT SAPHENOUS VEIN: Diameter: None imaged Reflux: NA DUPLICATED LATERAL GREAT SAPHENOUS VEIN: Diameter: None imaged Reflux: NA SMALL SAPHENOUS VEIN: Saphenopopliteal Junction: 0.2 cm; Reflux: 0 ms Proximal: 0.3 cm; Reflux: 0 ms Distal: 0.3 cm; Reflux: 0 ms VEIN OF GIACOMINI: Size: 0.3 cm. Reflux: NA PERFORATORS: Location: Proximal thigh and distal calf. Size: 0.2-0.3 cm. Reflux: NA VARICOSITIES: Location: Distal calf. Size: 0.3 cm. Reflux: NA 3. DEEP VENOUS ULTRASOUND OF THE LEFT LOWER EXTREMITY: Common Femoral Vein: Compressible, normal respiratory variation and augmented flow. Femoral Vein: Compressible, normal color flow and augmentation. Popliteal Vein: Compressible, normal augmentation. Deep Reflux: There is no evidence of reflux in the deep system in either the common femoral vein, superficial femoral or the popliteal vein. There is no evidence of a Lynne's cyst. 4. SUPERFICIAL ULTRASOUND WITH DOPPLER OF LEFT LOWER EXTREMITY: GREAT SAPHENOUS VEIN: Saphenofemoral Junction: 0.5 cm; Reflux: 0 ms Proximal Thigh: 0.5 cm; Reflux: 0 ms Mid Thigh: 0.4 cm; Reflux: 0 ms Distal Thigh: 0.4 cm; Reflux: 0 ms At Knee: 0.3 cm; Reflux: 0 ms Proximal Calf: 0.4 cm; Reflux: 0 ms Mid Calf: 0.3 cm; Reflux: 0 ms Distal Calf: 0.3 cm; Reflux: 0 ms DUPLICATED MEDIAL GREAT SAPHENOUS VEIN: Diameter: None imaged Reflux: NA DUPLICATED LATERAL GREAT SAPHENOUS VEIN: Diameter: None imaged. Reflux: NA SMALL SAPHENOUS VEIN: Saphenopopliteal Junction: 0.3 cm; Reflux: 0 ms Proximal: 0.2 cm; Reflux: 0 ms Distal: 0.2 cm; Reflux: 0 ms VEIN OF GIACOMINI: Size: 0.3 cm. Reflux: NA PERFORATORS: Location: Proximal to distal calf. Size: 0.2-0.3 cm. Reflux: NA VARICOSITIES: Location: Distal calf. Size: 0.3 cm. Reflux: NA US/US venous insuf bilat IMPRESSION: Right: No venous insufficiency. Perforators and varices without reflux. Left: No venous insufficiency. Perforators and varices without reflux. Electronically signed by: Ruben Collins MD 02/06/2025 09:57 AM EDT
== END 2025-02-06 08:22 | disposition home or self-care (01) ==
LOC: HO.US 08:21
PROVIDERS: PCP Internal Medicine; Visit Provider Physician Assistant Surgical
DX: I83.11 Varicose veins of right lower extremity with inflammation (principal); I83.12 Varicose veins of left lower extremity with inflammation
CPT/HCPCS: 93970

== ENCOUNTER → 2025-02-06 08:23 | Outpatient (BNV) | payer OTHER, SELFPAY | PROVIDERS: PCP Internal Medicine; Visit Provider Radiology Diagnostic Radiology | DX: I83.813 Varicose veins of bilateral lower extremities with pain (principal) | CPT/HCPCS: 93970 ==

== ENCOUNTER 2025-04-02 09:51 | Outpatient (AMB) | payer OTHER, SELFPAY ==
[2025-04-02 09:59] VITALS: BMI 33.1
--- NOTE | 2025-04-02 09:59 | A.OFFVIS_ITS ---
Vital Signs 04/02/25 09:59 Height 5 ft 10 in Weight 231 lb BMI 33.1 Intake Visit Reasons: follow up s/p US 02/06/25 Intake Note: follow up 02/06/25. Pt states Right LE worse than the Left LE. had heaviness, swelling and aching. States he has lost almost 40 lbs in the last 6 months and has been wearing compression and it has helped a great deal. [employer] Dean Required: No Accompanied by: Self / Same As Patient Allergies Seasonal Allergies Allergy (Verified 04/02/25 10:02) Congestion HPI HPI follow up s/p 02/06/25: Details: Very pleasant 59-year-old gentleman presents for routine follow-up regarding venous insufficiency. He does have some mild swelling of bilateral lower extremities. He has used compression with minimal relief. 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 He now presents for follow-up with venous insufficiency testing. 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 Current occupational exposures/hazards: Yes Cognitive needs: No Hearing needs: No Vision needs: Yes (reading glasses) Review of Systems Const All systems reviewed & are unremarkable except as noted in HPI and below Reports no additional complaints ENT Reports Normal hearing present Card Denies chest pain, Denies chest pain at rest, Denies chest pain with activity and Denies pedal edema Resp Denies cough GI Denies abdominal pain Musc Denies abnormal gait, Denies muscle cramps and Denies radiating pain into limb Skin/Breast Denies skin ulcer and Denies wounds Neuro Reports Normal hearing present and Denies abnormal gait Psych Reports no additional complaints Physical Exam Vital Signs: BMI result Body Mass Index 33.1 Const General: cooperative, healthy appearing and comfortable Orientation/consciousness: oriented to person, oriented to place and oriented to time HEENT Head: Yes normal to inspection Neck Neck: Yes normal visual inspection Carotids: no bruits Chest Chest palpation & inspection: normal inspection of the chest Resp Effort & Inspection: normal respiratory effort and able to speak in complete sentences Auscultation: clear to auscultation bilaterally, no crackles, no rales, no rhonchi and no wheezes Cardio Rate: regular rate Rhythm: regular rhythm Heart sounds: S1 normal heart sound present and S2 normal heart sound present Bruits: no carotid bruits Peripheral pulses: Peripheral pulses 2+ throughout GI Inspection: Yes normal to inspection Skin Wounds: no wounds Hair: normal Neuro General: oriented to person, oriented to place and oriented to time Cranial nerves: Yes CN's II-XII intact bilaterally and Yes Normal hearing present Cognition (Neuro): normal cognition Motor exam (neuro): 5/5 motor strength present throughout Extrem Other: venous exam: +1 edema General: No clubbing, No cyanosis and No edema Psych Appearance: grossly normal Mental Status: mental status grossly normal Speech and movement: Normal speech and movement present Results Reviewed Results Reviewed: Brief summary of venous insufficiency testing is as follows: right great saphenous vein: negative right small saphenous vein: negative right accessory vein: none present left great saphenous vein: negative left small saphenous vein: negative left accessory vein: none present Please note there is no evidence of any venous aneurysms or significant tortuosity Assessment & Plan Assessment & Plan (1) Varicose veins of both lower extremities with inflammation: Code(s): I83.11 - Varicose veins of right lower extremity with inflammation; I83.12 - Varicose veins of left lower extremity with inflammation Category: Medical Plan: In short patient is negative for any significant venous insufficiency. We discuss routine conservative measures including compression elevation and exercise. She will follow up with us on an as-needed basis. Thank you for allowing us to assist in his care. Coding Level of Care Code Est Pt Level 4 (35319) Diagnoses Varicose veins of both lower extremities with inflammation I83.11; I83.12
== END 2025-04-02 10:24 | disposition home or self-care (01) ==
LOC: HO.HVS 09:52
PROVIDERS: PCP Internal Medicine; Visit Provider Surgery Vascular Surgery
DX: I83.11 Varicose veins of right lower extremity with inflammation (principal); I83.12 Varicose veins of left lower extremity with inflammation
CPT/HCPCS: 99214

== ENCOUNTER 2025-07-03 08:43 | Outpatient (AMB) | payer OTHER, SELFPAY ==
[2025-07-03 09:02] VITALS: BP 121/69; PULSE 79; BMI 30.3
--- NOTE | 2025-07-03 09:02 | A.OFFVIS_ITS ---
Vital Signs 07/03/25 09:02 Height 5 ft 10 in Weight 211 lb 3.245 oz BMI 30.3 BP 121/69 Blood Pressure Location Lt brachial Position Sitting Pulse 79 Intake Visit Reasons: Colonoscopy Screening Intake Note: New patient in office today for colonoscopy screening. CC: Patient denies having any GI symptoms or concerns. His last colonoscopy was done when he was 49 y/o and it was normal per PT. 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 He is referred by Shanna Guevara. PMX ALLERGIC RHINITIS High cholesterol Cataracts Hernia Multiple Nevi BCC rt cheek Aortic root dilation * SURGICAL HISTORY Inguinal hernia repair Cataract removal Colonoscopy age 49 BCC of face rt cheek removed * ALLERGIES: NKDA * [employer] LABS: Laboratory Tests 11/27/24 09:18 WBC 6.8 Hgb 17.3 Hct 50.6 Plt Count 201 Estimated GFR > 60 Total Bilirubin 0.4 AST 41 H ALT 25 Alkaline Phosphatase 64 TODAY'S VISIT Prior scopes: His last scope was at [facility] at age 49 and was negative. He denies any bowel or upper GI problems. He has not aortic root dilation and has undergone stress testing and and echocardiograms that have been completely normal so this is not an active issue, and he denies any respiratory problems He denies any problems with anesthesia or sedation He denies any infectious diseases There is no known history of colon cancer or polyps [facility] Medical History (Updated 07/03/25 @ 09:49 by MEGAN Hopkins) Basal cell carcinoma (BCC) in situ of skin Physical exam Screening, deficiency anemia, iron Screening for colon cancer Screening for hyperlipidemia Hernia Cataracts, bilateral Surgical History (Updated 07/03/25 @ 09:49 by MEGAN Hopkins) H/O basal cell carcinoma excision H/O inguinal hernia repair S/P cataract surgery H/O colonoscopy Social History Housing: Apartment Alcohol intake: never Patient Tobacco Use Status: Former Tobacco user Cigarette Packs Per Day: 1 Years Smoked: 30, quit 12 years ago e-Cigarette/Vaping Use: Never Used Second Hand Smoke Exposure: Yes Substance Use Type: Marijuana service: Yes Current occupational status: employed 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 Current occupational exposures/hazards: Yes Cognitive needs: No Hearing needs: No Vision needs: Yes (reading glasses) Review of Systems Const Denies fatigue, Denies fever(s), Denies night sweats, Denies poor appetite and Denies weight loss ENT Reports Normal hearing present, Denies dysphagia, Denies odynophagia, Denies throat swelling and Denies tongue swelling Card Reports no additional complaints Resp Reports no additional complaints GI Details: Denies abdominal pain, Denies melena, Denies bloating, Denies hematochezia, Denies constipation, Denies GI cramping, Denies dysphagia, Denies excessive flatus, Denies early satiety, Denies heartburn, Denies diarrhea, Denies nausea, Denies odynophagia, Denies vomiting and Denies hematemesis Skin/Breast Denies pruritus, Denies lesions, Denies rash and Denies jaundice Neuro Reports Normal hearing present and Denies Abnormal speech present Endo Denies fatigue Aller/Immun Denies throat swelling and Denies tongue swelling Physical Exam Vital Signs: Last Vital Signs Pulse 79 07/03/25 09:02 BP 121/69 07/03/25 09:02 BMI result Body Mass Index 30.3 Const General: cooperative, no acute distress, well developed and well groomed Nutritional Appearance: well nourished and overweight Orientation/consciousness: oriented to person, oriented to place and oriented to time Limitations: No language barrier HEENT Head: Yes normocephalic and Yes atraumatic Eyes General: appearance normal, both eyes and all related structures Pupils: Equal, round and reactive pupils present Neck Neck: Yes normal visual inspection and Yes no lymphadenopathy Thyroid: Thyroid normal Resp Effort & Inspection: normal respiratory effort and able to speak in complete sentences Auscultation: clear to auscultation bilaterally Cardio Rate: regular rate Rhythm: regular rhythm Heart sounds: Normal, physiologic split S2 sound present Peripheral pulses: radial pulses present and posterior tibial pulses present GI Inspection: No distended, No Abdominal panniculus present and Yes obesity Palpation (GI): Soft to palpation, nontender, no guarding, not rigid and No hepatosplenomegaly present Percussion: Yes normal to percussion Auscultation: normal bowel sounds Rectal Exam - Male: Yes deferred Skin General skin exam: no rashes or lesions noted, turgor normal, skin not dry, no jaundice, No spider nevi and no striae Rashes: no rashes Nails: normal Neuro General: oriented to person, oriented to place and oriented to time Cranial nerves: Yes Equal, round and reactive pupils present and Yes Normal hearing present Speech: No Abnormal speech present Extrem General: Yes normal to inspection, No clubbing, No cyanosis and Yes edema (LLE mild) Psych Appearance: grossly normal and well kempt Mental Status: mental status grossly normal Speech and movement: Normal speech and movement present Affect: normal affect Attitude: cooperative Thought process: Normal thought process present and not confabulating Thought content: Normal thought content present Insight: Good insight present (Psych) Judgement: Good judgement present (Psych) Assessment & Plan Assessment & Plan (1) Pre-op examination: Code(s): Z01.818 - Encounter for other preprocedural examination Category: Medical Plan Prior scopes: His last scope was at [facility] at age 49 and was negative. He denies any bowel or upper GI problems. He has not aortic root dilation and has undergone stress testing and and echocardiograms that have been completely normal so this is not an active issue, and he denies any respiratory problems He denies any problems with anesthesia or sedation He denies any infectious diseases There is no known history of colon cancer or polyps Orders: Referrals GI Procedure Notification Z01.818 - Encounter for other preprocedural examination Medications: New sodium,potassium,mag sulfates 17.5-3.13-1.6 gram (Suprep Bowel Prep Kit) 480 mL orally; FOR COLONOSCOPY PREP 354 mL 0RF Coding Level of Care Code New Pt Level 3 (30213) Diagnoses Pre-op examination Z01.818
== END 2025-07-03 09:29 | disposition home or self-care (01) ==
LOC: HO.HGI 08:44
PROVIDERS: PCP Internal Medicine; Visit Provider Nurse Practitioner
DX: Z01.818 Encounter for other preprocedural examination (principal); Z12.11 Encounter for screening for malignant neoplasm of colon
CPT/HCPCS: 99203